=== PATIENT | male | born 1950 | race Caucasian/White ===

== ENCOUNTER 2016-09-23 20:43 | Emergency (ER) | payer OTHER, MEDICARE ==
[2016-09-23 20:53] VITALS: TEMP 98.1
--- NOTE | 2016-09-23 21:46 | EDPHY ---
H & P Stated Complaint: unable to void Time Seen by Provider: 09/23/16 20:51 HPI/ROS: CHIEF COMPLAINT: Urinary retention, chronic hematuria HISTORY OF PRESENT ILLNESS: The patient presents to the ED with complaints of urinary retention. Patient was diagnosed with a renal mass and is currently undergoing evaluation of that condition. He is scheduled to undergo nephrectomy performed at the [facility]. Since his diagnosis he has had intermittent hematuria and passage of clots. He is not had a history of urinary retention. The patient did undergo cystoscopy approximately week ago which demonstrated no additional genitourinary abnormalities. Patient denies additional significant past medical history and takes no anticoagulants. The patient has been unable to void for approximately the past 3-4 hours. He denies fever or flank pain. The patient does complain of some mild suprapubic discomfort. REVIEW OF SYSTEMS: A comprehensive 10 point review of systems is otherwise negative aside from elements mentioned in the history of present illness. Source: Patient Exam Limitations: No limitations - Personal History Current Tetanus Diphtheria and Acellular Pertussis (TDAP): Yes - Medical/Surgical History Hx Asthma: No Hx Chronic Respiratory Disease: No Hx Diabetes: No Hx Cardiac Disease: No Hx Renal Disease: No Hx Cirrhosis: No Hx Alcoholism: No Hx HIV/AIDS: No Hx Splenectomy or Spleen Trauma: No Other PMH: mass on kidney, in process of being treated - Social History Smoking Status: Never smoked - Physical Exam Exam: General Appearance: Alert, no distress Eyes: Pupils equal and round no pallor or injection ENT, Mouth: Mucous membranes moist Respiratory: There are no retractions, lungs are clear to auscultation Cardiovascular: Regular rate and rhythm Gastrointestinal: Minimal suprapubic tenderness to palpation Neurological: A&O, normal motor function, normal sensory exam, normal cranial nerves Skin: Warm and dry, no rashes Musculoskeletal: Neck is supple nontender Extremities: symmetrical, full range of motion Constitutional: Initial Vital Signs Temperature (C) 36.7 C 09/23/16 20:50 Heart Rate 72 09/23/16 20:50 Blood Pressure 146/95 H 09/23/16 20:50 O2 Sat (%) 93 09/23/16 20:50 O2 Delivery Mode Room Air Allergies/Adverse Reactions: No Known Allergies Allergy (Unverified 09/23/16 21:14) Home Medications: Medication Instructions Recorded NK [No Known Home Meds] 09/23/16 Medical Decision Making ED Course/Re-evaluation: The patient was noted to have a bladder scan which demonstrated a urinary volume of greater than 500 mL is. The patient was unable to urinate in the ED. A Davis catheter was placed which resulted in the return of 1300 mL of urine. The patient is otherwise well-appearing. He is afebrile without evidence of flank pain. The patient is scheduled to see his urologist tomorrow for follow-up appointment. The patient will be discharged home with a Davis catheter and leg bag. Differential Diagnosis: Differential diagnosis considered includes urinary retention, hematuria, cystitis Departure - Departure Disposition: Home, Routine, Self-Care Clinical Impression: Urinary retention, Hematuria, Renal mass Condition: Good Instructions: Urinary Retention in Men (ED) Additional Instructions: 1. Please follow up tomorrow as scheduled with your urologist. 2. Return to the ED for any fever, vomiting, back pain or other concerns. Referrals: Lavon Kitchen MD [Primary Care Provider] - As per Instructions
[2016-09-23 22:03] VITALS: BP 140/70; PULSE 70; RESP 14; O2SAT 95
== END 2016-09-23 22:02 | disposition home or self-care (01) ==
PROC: 0T9B70Z Drainage of Bladder with Drainage Device, Via Natural or Artificial Opening (ICD-10-PCS; principal; 2016-09-23)
DX: R33.9 Retention of urine, unspecified (principal); N28.89 Other specified disorders of kidney and ureter

== ENCOUNTER 2016-10-29 15:58 | Emergency (ER) | payer OTHER, MEDICARE ==
[2016-10-29 16:07] VITALS: RESP 18; TEMP 98.2
--- NOTE | 2016-10-29 17:55 | EDPHY ---
H & P Time Seen by Provider: 10/29/16 17:22 HPI/ROS: CHIEF COMPLAINT: Right leg swelling, , DVT HISTORY OF PRESENT ILLNESS: 66-year-old male presents to the emergency department by private vehicle with several weeks of pain and swelling to his right lower leg. The patient had an outpatient ultrasound today and was diagnosed with extensive right lower extremity DVT. The patient had a nephrectomy due to kidney cancer on 10/11/2016. He states even when he left the hospital he was feeling some mild pain in his right lower leg. It has become worse. It is especially worse when tries to move around or bear weight. Denies feeling short of breath. Denies pleuritic chest pain. Denies any chest pain. No fevers or chills. No rash. No reported trauma. REVIEW OF SYSTEMS: Constitutional: No fever, no chills. Eyes: No double or blurry vision. ENT: No sore throat. Respiratory: No cough, no shortness of breath. Cardiac: No chest pain. Gastrointestinal: No abdominal pain, vomiting or diarrhea. Genitourinary: No dysuria. Musculoskeletal: No neck or back pain. Skin: No rashes. Neurological: No headache. Past Medical/Surgical History: Kidney cancer, nephrectomy 10/11/2016 Social History: Smoking Status: Never smoked Physical Exam: General Appearance: Alert, no distress. Vital signs are stable. Eyes: Pupils equal and round. Extraocular motions are all intact. ENT: Mouth: Mucous membranes moist. Respiratory: No wheezing, rhonchi, or rales, lungs are clear to auscultation. Cardiovascular: Regular rate and rhythm. Gastrointestinal: Abdomen is soft and nontender, no masses, no rebound or guarding, bowel sounds normal. Neurological: Alert and oriented x 3, cranial nerves II through XII grossly intact Skin: Warm and dry, no rashes. Musculoskeletal: Nontender to palpate along the cervical, thoracic or lumbar spine. Neck is supple. Extremities: Swelling noted to the right lower extremity compared to the left. He has mild diffuse pain with palpation from the right mid thigh down to the ankle. He has palpable pulses both dorsalis pedis and posterior tibial pulse. Skin is warm and dry. Full range of motion of upper and lower extremities. Psychiatric: Patient is oriented X 3, there is no agitation. Constitutional: Initial Vital Signs Temperature (C) 36.8 C 10/29/16 16:04 Heart Rate 78 10/29/16 16:04 Respiratory Rate 18 10/29/16 16:04 Blood Pressure 123/82 H 10/29/16 16:04 O2 Sat (%) 98 10/29/16 16:04 O2 Delivery Mode Room Air Allergies/Adverse Reactions: No Known Allergies Allergy (Verified 10/29/16 16:04) Home Medications: Medication Instructions Recorded Rivaroxaban [Xarelto 15mg (*)] 15 mg PO BID #42 tab 10/29/16 Medical Decision Making - Diagnostics Imaging Results: Outpatient ultrasound from earlier today was reviewed and reveals intraluminal filling defect identified in the mid and distal femoral vein, popliteal vein and peroneal and posterior tibial veins. This was reported by Dr. Lino Walker. ED Course/Re-evaluation: 66-year-old male presents with pain and swelling to the right calf. Ultrasound reveals extensive DVT to the right lower leg. I have contacted Dr. Milian, interventional radiologist to see if he is a candidate for interventional radiology. Dr. Ulloa states that he is not a candidate for interventional Radiology. The case was discussed with Dr. Ed Caba. The patient will be given Xarelto 15 mg twice daily for 21 days. I spoke with Dr. Reanna Guerin who was on-call for his primary care provider and she will arrange for him to have a follow-up appointment next week. I also spoke with his urologist on-call, Dr. De La Fuente, who agreed for the patient to start Xarelto. He did not feel that there was any other risk of bleeding since the surgery was on the 11 of October. I do not think this patient needs admission to the hospital. I doubt this patient has a pulmonary embolism. He denies pleuritic chest pain or shortness of breath. He is comfortable being discharged home. Was given strict instructions to return to the emergency department if he had any feelings of shortness of breath or any other concerns. Differential Diagnosis: Including but not limited to DVT, pulmonary embolism, muscular spasm, contusion , venous stasis - Data Points Laboratory Results: 10/29/16 10/29/16 19:00 19:00 PT 14.9 SEC SEC (12.0-15.0) INR 1.17 H (0.83-1.16) APTT 32.3 SEC SEC (23.0-38.0) Fibrinogen 660 mg/dL H mg/dL (214-456) D-Dimer 10.55 ug/mLFEU H ug/mLFEU (0.00-0.50) Protein C Activity Pending Protein S Activity Pending Antithrombin III Activ Pending Factor V Leiden Mutat Pending Factor V Leiden Interp Pending Fact V Leiden Review By Pending Anti-Cardiolipin IgG Ab Pending Anti-Cardiolipin IgM Ab Pending Medications Given: Discontinued Medications Rivaroxaban (Xarelto) 15 mg PO EDNOW ONE Stop: 10/29/16 19:05 Last Admin: 10/29/16 19:43 Dose: 15 mg Departure - Departure Disposition: Home, Routine, Self-Care Clinical Impression: Right leg DVT Qualifiers: Affected thrombotic vein of extremity: unspecified vein of extremity Chronicity : acute Qualified Code(s): I82.401 - Acute embolism and thrombosis of unspecified deep veins of right lower extremity Condition: Good Instructions: Deep Venous Thrombosis (ED) Additional Instructions: Xarelto 15 mg twice daily for 21 days. Follow up with your primary care provider next week to recheck. Tell them that we spoke with Dr. Reanna Guerin who was covering for your primary care provider and she advised that you be seen for follow-up next week. Return to the emergency department immediately if you feel short of breath, if you develop pain in your chest, or if you feel worse in any way. Referrals: Lavon Kitchen MD [Primary Care Provider] - As per Instructions Prescriptions: Rivaroxaban [Xarelto 15mg (*)] 15 mg PO BID #42 tab
[2016-10-29] MEDS ORDERED: RIVAROXABAN 15 MG TAB PO ONE (19:04)
[2016-10-29 19:25] LABS: INR 1.17 (0.83-1.16); PROTIME(PATIENT) 14.9 SEC (12.0-15.0)
[2016-10-29 19:26] LABS: APTT 32.3 SEC (23.0-38.0)
[2016-10-29 19:44] VITALS: BP 134/81; PULSE 79; O2SAT 94
[2016-11-01 11:02] LABS: PROTEIN S ACTIVITY 149 % (65 - 160)
[2016-11-01 12:47] LABS: PROTEIN C ACTIVITY 109 % (70 - 150)
[2016-11-01 15:47] LABS: INTERPRETATION See Comments
== END 2016-10-29 19:43 | disposition home or self-care (01) ==
DX: I82.401 Acute embolism and thrombosis of unspecified deep veins of right lower extremity (principal); Z85.528 Personal history of other malignant neoplasm of kidney
CPT/HCPCS: 85300-90; 85303-90; 85306-90; 86147-90

== ENCOUNTER → 2016-10-29 | Outpatient (CLI) | payer OTHER, MEDICARE | LOC: BMCIMAGING 14:05 | PROVIDERS: ATTEND Nurse Practitioner Family | DX: I82.401 Acute embolism and thrombosis of unspecified deep veins of right lower extremity (principal) ==

== ENCOUNTER → 2017-05-18 | Outpatient (CLI) | payer OTHER, MEDICARE | LOC: BMCIMAGING 14:49 | PROVIDERS: ATTEND Internal Medicine | DX: R22.41 Localized swelling, mass and lump, right lower limb (principal) ==